=== PATIENT | male | born 1950 | race Caucasian/White ===

== ENCOUNTER → 2017-05-28 | Outpatient (CLI) | payer OTHER ==
[~2017-05-28] MED LIST: AMB10 PO; ATEN-173 PO; BUPR200T2 PO; CETI10TA84 PO; CLX20 PO; COQ10100 PO; HYDC25 PO; NMN10 PO; OMEG10007 PO; SYN75 PO; [UNRECOGNIZED DRUG - OTHER] PO
== END | disposition home or self-care (01) ==
LOC: C.CPL 10:10
PROVIDERS: ATTEND Psychiatry & Neurology Neurology
DX: G10 Huntington's disease (principal); R00.1 Bradycardia, unspecified; I44.0 Atrioventricular block, first degree; I25.2 Old myocardial infarction

== ENCOUNTER 2017-06-08 00:50 | Emergency (ER) | payer OTHER ==
[~2017-06-08] VITALS: Ht 172.7 cm; Wt 86.0 kg
[2017-06-08 00:56] VITALS: TEMP 36.7; Ht 172.7 cm; Wt 86.0 kg
[2017-06-08] MEDS ORDERED: PROPARACAINE HCL 0.5% OP SOLN 15 ML BTL ONE (01:04)
--- NOTE | 2017-06-08 01:25 | EMERGENCY ROOM VISIT NOTE ---
History Report prepared by Rafa: Mio Portillo Under the Supervision of: Dr. Sofia Bahena D.O. First contact with patient: 00:59 Chief Complaint: EYE ASSESSMENT Stated Complaint: VISION BLURRED,EYES WATER History of Present Illness The patient is a 66 year old male who presents to the Emergency Room with complaints of constant bilateral eye pain since two hours ago. 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 The patient states that he was wearing eye protection and a mask. He notes that his eyes became watery and he cannot open his eyes due to pain. He denies any history of lap welder's flash. The patient has a history of bilateral cataract surgery about 10 years ago. 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 Source of History: patient, nursing staff Onset: two hours ago Position: eye (bilateral) Quality: other (watery and unable to open eyes) Timing: constant Note: He notes bilateral eye pain. Review of Systems See HPI for pertinent positives & negatives. A total of 10 systems reviewed and were otherwise negative. Past Medical & Surgical Medical Problems: (1) bilateral cataract lens (2) HTN (hypertension) (3) Quan disease Family History FH: Riverhead's disease Hypertension Social History Smoking Status: Never Smoker Smokeless Tobacco Use: No Alcohol Use: none Drug Use: none Marital Status: Housing Status: lives with significant other Occupation Status: unemployed Current/Historical Medications Scheduled Atenolol (Tenormin), 25 MG PO DAILY Bupropion (Wellbutrin Sr), 200 MG PO BID Cetirizine (Zyrtec), 10 MG PO DAILY Citalopram (Celexa *), 20 MG PO DAILY Coenzyme Q10 (Ubidecarenone) (Co Q10 *), 4 CAPSULES PO QAM Coenzyme Q10 (Ubidecarenone) (Co Q10 *), 8 CAPSULES PO QPM Fish Oil ([place]wan-3), 1 CAP PO BID Haloperidol (Haldol Unknown Dose), 1 MG PO BID Hydrochlorothiazide (Hctz *), 25 MG PO DAILY Levothyroxine (Synthroid *), 0.075 MG PO DAILY Memantine (Namenda), 10 MG PO BID Zolpidem Tartrate (Ambien *), 10 MG PO HS Allergies Uncoded Allergies: NEOPRENE (Allergy, Unknown, ., 07/10/15) Physical Exam Vital Signs Date Time Temp Pulse Resp B/P (MAP) Pulse Ox O2 Delivery O2 Flow Rate FiO2 06/08/17 01:40 70 20 130/76 98 Room Air 06/08/17 00:56 36.7 73 20 136/84 98 Room Air Physical Exam Slit Lamp Examination Indication:Pain in both eyes Both eyes prepped with topical proparacaine. Slit lamp examination was performed in the standard fashion. Cornea appeared to have punctate lesions. Anterior chamber was quiet. Scleral injection was present. No discharge present. Fluorescein examination performed and revealed diffuse punctate lesions across both cornea consistent with lap welder's flash. The right appeared to be worse than the left. No foreign bodies noted. Negative Kyle sign. The patient tolerated the procedure well without complication. Medical Decision & Procedures Medications Administered Medications (Trade) Dose Ordered Sig/Georgina Route Start Time Stop Time Status Last Admin Dose Admin Proparacaine HCl (Alcaine 0.5% Oph Soln) 225 drops STK-MED ONCE .ROUTE 06/08/17 01:04 06/08/17 01:05 DC 06/08/17 01:13 225 DROPS Erythromycin (Erythromycin Oph Oint) 1 appln NOW ONCE OPB 06/08/17 01:30 06/08/17 01:31 DC 06/08/17 01:40 1 APPLN Procedure 0104: Ordered Proparacaine HCl 4 drops OPB 0130: Ordered Erythromycin 1 appln OPB ED Course 0102: Past medical records reviewed. The patient was evaluated in room B11B. A complete history and physical exam was performed. I administered 2 drops of Proparacaine HCl in each eye. The patient was able to open his eyes and states his vision is blurry. I performed a slit lamp exam. Please see exam note. I discussed the results and treatment plan with the patient and his . I answered all pertaining questions that they had. They expressed understanding and verbalized agreement. The patient will be discharged home. 0104: Ordered Proparacaine HCl 4 drops OPB 0130: Ordered Erythromycin 1 appln OPB Medical Decision The patient is a 66 year old male who presents to the ED with bilateral eye pain. Differential diagnosis includes corneal foreign body, conjunctivitis, and keratitis. This is a 66-year-old male patient who was welding earlier today as well as using a wire brush to clean judy nails. The patient had a sudden onset of discomfort in both of his eyes at bedtime. On physical exam, no foreign bodies were identified. There is no rust noted in the cornea. However, the patient had evidence of welders keratitis. The patient had complete relief of his eye pain with the Alcaine drops used to perform slit lamp examination. Patient was given an initial dose of erythromycin ophthalmic ointment. He should continue to use this over the next couple of days in both eyes every 6 hours. I have asked the patient to follow-up with his dental resident. 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 We will stick with Tylenol or Motrin for the pain in his eyes. Medication Reconcilliation Current Medication List: was personally reviewed by me Blood Pressure Screening Patient's blood pressure: Elevated blood pressure Blood pressure disposition: Elevated BP felt to be situational Impression Primary Impression: Welders' keratitis of both eyes Scribe Attestation The scribe's documentation has been prepared under my direction and personally reviewed by me in its entirety. I confirm that the note above accurately reflects all work, treatment, procedures, and medical decision making performed by me. Departure Information Dispostion Home / Self-Care Referrals Kin John M.D. (PCP) Forms HOME CARE DOCUMENTATION FORM, IMPORTANT VISIT INFORMATION, WORK / SCHOOL INSTRUCTIONS Patient Instructions My [facility] Additional Instructions Apply ointment to both eyes every 6 hours. Use tylenol or motrin for pain Follow up with eye doctor in 48 hours
[2017-06-08] MEDS ORDERED: ERYTHROMYCIN OP OINT 5 MG/GM 3.5 GM TUBE OPB ONE (01:30)
[2017-06-08 01:40] VITALS: BP 130/76; PULSE 70; O2SAT 98
== END 2017-06-08 01:41 | disposition home or self-care (01) ==
LOC: C.EDB 00:51
DX: H16.133 Photokeratitis, bilateral (principal); W89.0XXA Exposure to welding light (arc), initial encounter; Y93.89 Activity, other specified; Z98.41 Cataract extraction status, right eye; Z98.42 Cataract extraction status, left eye; Z96.1 Presence of intraocular lens; I10 Essential (primary) hypertension; G10 Huntington's disease; Z82.49 Family history of ischemic heart disease and other diseases of the circulatory system; Z79.899 Other long term (current) drug therapy; Z88.8 Allergy status to other drugs, medicaments and biological substances

== ENCOUNTER 2018-05-17 11:23 | Inpatient (IN) ==
[2018-05-17 12:09] LABS: Basophils # (auto) 0.01 K/uL (0-0.2); Basophils % (auto) 0.1 %; Eosinophils # (auto) 0.05 K/uL (0-0.5); Eosinophils % (auto) 0.4 %; Hematocrit (blood only) 44.4 % (42-52); Hemoglobin 15.4 g/dL (14.0-18.0); Immature Granulocytes # (auto) 0.03 K/uL (0.00-0.02); Immature Granulocytes % (auto) 0.2 %; Lymphocytes # (auto) 1.21 K/uL (1.2-3.4); Mean Corpuscular Hgb Conc 34.7 g/dL (32-36); Mean Corpuscular Volume 96.9 fL (80-100); Mean Platelet Volume 10.8 fL (7.4-10.4); Monocytes # (auto) 1.13 K/uL (0.11-0.59); Monocytes % (auto) 9.3 %; Neutrophils # (auto) 9.68 K/uL (1.4-6.5); Platelet Count 166 K/uL (130-400); RDW Coefficient of Variation 13.9 % (11.5-14.5); RDW Standard Deviation 49.7 fL (36.4-46.3); Red Blood Count 4.58 M/uL (4.7-6.1); White Blood Count 12.11 K/uL (4.8-10.8)
[2018-05-17 12:17] LABS: Alanine Aminotransferase 22 U/L (12-78); Albumin Level 3.7 gm/dl (3.4-5.0); Aspartate Aminotransferase 22 U/L (15-37); BUN Creatinine Ratio 14.7 (10-20); Blood Urea Nitrogen 19 mg/dl (7-18); Calcium 8.3 mg/dl (8.5-10.1); Carbon Dioxide 35 mmol/L (21-32); Chloride 101 mmol/L (98-107); Creatinine Clr Calc Pharmacy 53.5 ml/min; Est GFR (Non-African American) 57.8; Glucose 101 mg/dl (70-99); Sodium 140 mmol/L (136-145)
[2018-05-17 12:21] LABS: Albumin Globulin Ratio 0.9 (0.9-2); Alkaline Phosphatase 81 U/L (45-117); Bilirubin,Total 0.5 mg/dl (0.2-1); Globulin 3.9 gm/dl (2.5-4.0); Total Protein 7.6 gm/dl (6.4-8.2); Troponin I < 0.015 ng/ml (0-0.045)
[2018-05-17 12:26] LABS: Partial Thromboplastin Ratio 1.1; Partial Thromboplastin Time 30.7 Seconds (21.0-31.0); Prothrombin Time 10.6 Seconds (9.0-12.0)
--- NOTE | 2018-05-17 12:51 | XRay Report ---
XR chest 2V routine CLINICAL HISTORY: Dyspnea COMPARISON STUDY: No previous studies for comparison. FINDINGS: Minimal atelectasis right base. Slight interstitial prominence left base. Mid and upper coral gs are clear. IMPRESSION: Minimal/mild bibasilar atelectasis/interstitial change. Study is otherwise negative. The above report was generated using voice recognition software. It may contain grammatical, syntax or spelling errors. Electronically signed by: Rex Grullon M.D. 05/17/2018 12:50 PM
[2018-05-17 12:58] LABS: Influenza A virus by PCR Neg for Influ A (Neg); Influenza B virus by PCR Neg for Influ B (Neg)
[2018-05-17] MEDS ORDERED: OPTIRAY 320 125ml IV PRN (13:04)
--- NOTE | 2018-05-17 13:16 | CT Scan Report ---
CT angio chest PE protocol CT DOSE: 335.56 mGy.cm HISTORY: Dyspnea PE, hypoxia, sob TECHNIQUE: Multiaxial CT images of the chest were performed following the intravenous administration of contrast to evaluate the pulmonary arteries. Maximal intensity projection images were also obtaine d. A dose lowering technique was utilized adhering to the principles of ALARA. COMPARISON STUDY: None. FINDINGS: Thoracic aorta shows mild left ischemic change. Pulmonary vasculature enhances appropriately. There are no significant filling defects. There is a small patchy parenchymal infiltrate posterior aspect left lower lobe best seen transaxial image 51 and 50. There is minimal atelectasis right lung base. Pulmonary apices are considered clear. No significant mediastinal or hilar adenopathy. IMPRESSION: 1. Study is negative for pulmonary embolus.. 2. Small parenchymal infiltrate posterior aspect left lower lobe. 3. Degenerative changes thoracic spine. The above report was generated using voice recognition software. It may contain grammatical, syntax or spelling errors. Electronically signed by: Rex Grullon M.D. 05/17/2018 1:14 PM
[2018-05-17] MEDS ORDERED: AZITHROMYCIN 250 MG TAB PO ONE (13:58)
[2018-05-17] MEDS ORDERED: cefTRIAXone SODIUM 1,000 MG/50 ML BAG IV STA (13:58)
--- NOTE | 2018-05-17 14:15 | Emergency Department Note ---
Entered by Rufina Jose acting as a scribe for Magdiel Casas M.D. History of Present Illness General Chief complaint: Referred by Doctor Stated complaint: OXYGEN LEVEL LOW,POSSIBLE PNEUMONIA Source: patient Mode of arrival: ambulatory Limitations: no limitations History of Present Illness Onset (ago): day(s) 2 Location: chest Pain Consistency: + constant Quality: + other ("Low oxygen levels") Associated symptoms: + cough (without production), + fever/chills (The patient complains of fever. ), + shortness of breath and + other (. The patient complains of congestion. The patient denies difficulty swallowing. ); no nausea/vomiting The patient is a 67 year old male with a history of pneumonia who presents to the ED with complaints of a constant cough that onset 2 days ago. The patient states that he was referred to the ED for possible pneumonia and low oxygen level in the office. The patient complains of cough without production, shortness of breath, congestion, and fever. The patient denies nausea, vomiting, and difficulty swallowing. The patient wears hearing aids. He denies recent travel. Home Medications Home Medications Medication Instructions Recorded Confirmed Type Medical Marijuana 1 cap PO HS 11/26/17 05/17/18 History atenolol 25 mg PO QAM 11/26/17 05/17/18 History coenzyme Q10 [CoQ-10] 4 cap PO QAM 11/26/17 05/17/18 History coenzyme Q10 [CoQ-10] 8 cap PO HS 11/26/17 05/17/18 History hydrochlorothiazide 12.5 mg PO QAM 11/26/17 05/17/18 History memantine [Namenda] 10 mg PO BID 11/26/17 05/17/18 History omega 1-cld-wyl-fish oil [Fish Oil] 1 cap PO BID 11/26/17 05/17/18 History sertraline [Zoloft] 50 mg PO QAM 11/26/17 05/17/18 History sertraline [Zoloft] 100 mg PO HS 11/26/17 05/17/18 History zolpidem 10 mg PO HS 11/26/17 05/17/18 History bodbajfwfdg-nrkfjuhqpne-ownpsl 1 ea PO Q4H 03/05/19 03/05/19 History [Elvira-Milton Plus Cold (PE)] lamotrigine 75 mg PO HS 05/17/18 05/17/18 History levothyroxine 100 mcg PO QAM 05/17/18 05/17/18 History mirtazapine 45 mg PO HS 05/17/18 05/17/18 History sildenafil [Viagra] 25 mg PO DAILY PRN 05/17/18 05/17/18 History Allergies Allergy/AdvReac Type Severity Reaction Status Date / Time NEOPRENE Allergy Unknown . Uncoded 05/17/18 12:31 Past Med/Surg History Medical History PNA (pneumonia) (Acute) Simpson disease (Chronic) HTN (hypertension) (Chronic) Social History Preferred Language: Japanese Communication Ability: Effective First Aid Teacher Required: No Beliefs That Will Affect Care: None Current Living Situation: Spouse Other Information That Helps Us Care for You: No Feels Safe at Home: Yes Safety Concerns: Feels Safe At This Time Smoking Status: Former smoker Hx Alcohol Use: No Review of Systems See HPI for pertinent positives & negatives. and A total of 10 systems reviewed and were otherwise negative Physical Exam Vital Signs Vital Signs - 24 hr 05/17/18 11:29 05/17/18 11:45 05/17/18 12:18 Temperature 36.8 C Temperature Source Oral Sepsis Recent Fever Within 48 Hours No Sepsis New/Unexplained Change in Mental Status No Sepsis Action Taken by Nursing No Action Required Pulse Rate 62 Pulse Rate [Apical] Respiratory Rate 22 Respiratory Effort / Characteristics Respiratory Depth Respiratory Pattern Blood Pressure 104/69 Blood Pressure [Right Arm] Blood Pressure Mean 80 Blood Pressure Mean [Right Arm] Blood Pressure Position Sitting Blood Pressure Position [Right Arm] Pulse Oximetry 88 L 95 95 Oxygen Delivery Method Room Air Nasal Cannula Nasal Cannula Oxygen Flow Rate 2 2 05/17/18 13:13 05/17/18 14:27 05/17/18 15:33 Temperature Temperature Source Sepsis Recent Fever Within 48 Hours Sepsis New/Unexplained Change in Mental Status Sepsis Action Taken by Nursing Pulse Rate Pulse Rate [Apical] 61 55 L 55 L Respiratory Rate 18 18 Respiratory Effort / Characteristics Non-Labored Spontaneous Non-Labored Spontaneous Respiratory Depth Normal Normal Respiratory Pattern Regular Regular Blood Pressure Blood Pressure [Right Arm] 145/73 H 140/80 Blood Pressure Mean Blood Pressure Mean [Right Arm] 97 100 Blood Pressure Position Blood Pressure Position [Right Arm] Sitting Sitting Pulse Oximetry 92 93 95 Oxygen Delivery Method Nasal Cannula Nasal Cannula Nasal Cannula Oxygen Flow Rate 2 2 2 05/17/18 15:43 05/17/18 16:40 Temperature Temperature Source Sepsis Recent Fever Within 48 Hours Sepsis New/Unexplained Change in Mental Status Sepsis Action Taken by Nursing Pulse Rate Pulse Rate [Apical] 57 L Respiratory Rate 20 Respiratory Effort / Characteristics Non-Labored Spontaneous Respiratory Depth Normal Respiratory Pattern Regular Blood Pressure Blood Pressure [Right Arm] 135/90 Blood Pressure Mean Blood Pressure Mean [Right Arm] 105 Blood Pressure Position Blood Pressure Position [Right Arm] Pulse Oximetry 94 Oxygen Delivery Method Nasal Cannula Nasal Cannula Oxygen Flow Rate 2 2 GENERAL: Awake, alert, well-appearing, in no distress, on oxygen. HENT: Normocephalic, atraumatic. EYES: Normal conjunctiva. Sclera non-icteric. NECK: Supple. No nuchal rigidity. RESPIRATORY: Clear to auscultation. No wheezes. Normal respiratory effort. CARDIAC: Normal rate. Normal rhythm. Extremities warm and well perfused. GI: Soft, non-distended. No tenderness to palpation. No rebound or guarding. No masses. RECTAL: Deferred. MUSCULOSKELETAL: Atraumatic. Chest examination reveals no tenderness. LOWER EXTREMITIES: Calves are equal size bilaterally and non-tender. No edema NEURO: No sensory or motor deficits noted. No facial droop. Some slight tremor. SKIN: Warm and dry. No rash or jaundice noted. Course 1201: Past medical records reviewed. The patient was evaluated in room A02, and a complete history and physical examination were performed. 1415: I reviewed the patient's case with Dr. Stephon Sigala - [facility]. He will evaluate the patient for further management. Consultations Consultation #1: 1415: I reviewed the patient's case with Dr. Stephon Sigala - [facility]. He will evaluate the patient for further management. Time: 14:15 Administered Medications Ioversol (Optiray 320 125ml) 120 ml IV ONCE PRN PRN Reason: Interaction Checking Stop: 05/21/18 13:03 Last Admin: 05/17/18 13:05 Dose: 120 ml Documented by: [id number] Discontinued Medications Azithromycin (Zithromax) 500 mg PO NOW ONE Stop: 05/17/18 13:59 Last Admin: 05/17/18 14:16 Dose: 500 mg Documented by: [id number] Ceftriaxone Sodium (Rocephin) 1,000 mg in 50 mls @ 100 mls/hr IV NOW STA Stop: 05/17/18 14:27 Last Infusion: 05/17/18 14:47 Dose: 0 mls/hr Documented by: [id number] Admin: 05/17/18 14:17 Dose: 100 mls/hr Documented by: [id number] Medical Decision Making Differential Diagnosis Differential diagnosis: Etiologies such as infections, reactive airway disease, COPD, pneumonia, pleural effusion, pulmonary edema, ARDS, pneumothorax, CHF, cardiac ischemia, cardiac tamponade, dysrhythmia, anemia, pulmonary embolism, musculoskeletal, gastrointestinal process, as well as others were entertained. Medical Records Attestation: I reviewed the patient's medical records. Home Medications Current Medication List: was personally reviewed by me Laboratory Data Attestation: I reviewed the patient's lab results. Result diagrams: 05/17/18 11:44 05/17/18 11:44 Lab Results 05/17/18 05/17/18 05/17/18 Range/Units 11:44 11:44 11:44 WBC 12.11 H (4.8-10.8) K/uL RBC 4.58 L (4.7-6.1) M/uL Hgb 15.4 (14.0-18.0) g/dL Hct 44.4 (42-52) % MCV 96.9 (80-100) fL MCH 33.6 (25-34) pg MCHC 34.7 (32-36) g/dL RDW Std Deviation 49.7 H (36.4-46.3) fL RDW Coeff of Adriana 13.9 (11.5-14.5) % Plt Count 166 (130-400) K/uL MPV 10.8 H (7.4-10.4) fL Immature Gran % (Auto) 0.2 % Neut % (Auto) 80.0 % Lymph % (Auto) 10.0 % [place] % (Auto) 9.3 % Eos % (Auto) 0.4 % Baso % (Auto) 0.1 % Immature Gran # (Auto) 0.03 H (0.00-0.02) K/uL Neut # (Auto) 9.68 H (1.4-6.5) K/uL Lymph # (Auto) 1.21 (1.2-3.4) K/uL [place] # (Auto) 1.13 H (0.11-0.59) K/uL Eos # (Auto) 0.05 (0-0.5) K/uL Baso # (Auto) 0.01 (0-0.2) K/uL PT 10.6 (9.0-12.0) Seconds INR 1.0 (0.9-1.1) APTT 30.7 (21.0-31.0) Seconds PTT Ratio 1.1 Sodium 140 (136-145) mmol/L Potassium 3.0 L (3.5-5.1) mmol/L Chloride 101 (98-107) mmol/L Carbon Dioxide 35 H (21-32) mmol/L Anion Gap 4.0 (3-11) BUN 19 H (7-18) mg/dl Creatinine 1.26 (0.6-1.4) mg/dl Est Cr Clr Drug Dosing 53.5 ml/min Est GFR ( Amer) 67.0 Est GFR (Non-Af Amer) 57.8 BUN/Creatinine Ratio 14.7 (10-20) Glucose 101 H (70-99) mg/dl Calcium 8.3 L (8.5-10.1) mg/dl Total Bilirubin 0.5 (0.2-1) mg/dl AST 22 (15-37) U/L ALT 22 (12-78) U/L Alkaline Phosphatase 81 (45-117) U/L Troponin I < 0.015 (0-0.045) ng/ml Total Protein 7.6 (6.4-8.2) gm/dl Albumin 3.7 (3.4-5.0) gm/dl Globulin 3.9 (2.5-4.0) gm/dl Albumin/Globulin Ratio 0.9 (0.9-2) Influenza Type A (PCR) (Neg) Influenza Type B (PCR) (Neg) 05/17/18 Range/Units 12:11 WBC (4.8-10.8) K/uL RBC (4.7-6.1) M/uL Hgb (14.0-18.0) g/dL Hct (42-52) % MCV (80-100) fL MCH (25-34) pg MCHC (32-36) g/dL RDW Std Deviation (36.4-46.3) fL RDW Coeff of Adriana (11.5-14.5) % Plt Count (130-400) K/uL MPV (7.4-10.4) fL Immature Gran % (Auto) % Neut % (Auto) % Lymph % (Auto) % [place] % (Auto) % Eos % (Auto) % Baso % (Auto) % Immature Gran # (Auto) (0.00-0.02) K/uL Neut # (Auto) (1.4-6.5) K/uL Lymph # (Auto) (1.2-3.4) K/uL [place]enden # (Auto) (0.11-0.59) K/uL Eos # (Auto) (0-0.5) K/uL Baso # (Auto) (0-0.2) K/uL PT (9.0-12.0) Seconds INR (0.9-1.1) APTT (21.0-31.0) Seconds PTT Ratio Sodium (136-145) mmol/L Potassium (3.5-5.1) mmol/L Chloride (98-107) mmol/L Carbon Dioxide (21-32) mmol/L Anion Gap (3-11) BUN (7-18) mg/dl Creatinine (0.6-1.4) mg/dl Est Cr Clr Drug Dosing ml/min Est GFR ( Amer) Est GFR (Non-Af Amer) BUN/Creatinine Ratio (10-20) Glucose (70-99) mg/dl Calcium (8.5-10.1) mg/dl Total Bilirubin (0.2-1) mg/dl AST (15-37) U/L ALT (12-78) U/L Alkaline Phosphatase (45-117) U/L Troponin I (0-0.045) ng/ml Total Protein (6.4-8.2) gm/dl Albumin (3.4-5.0) gm/dl Globulin (2.5-4.0) gm/dl Albumin/Globulin Ratio (0.9-2) Influenza Type A (PCR) Neg for Influ A (Neg) Influenza Type B (PCR) Neg for Influ B (Neg) Imaging Data Radiologist's Impression: Radiology results as stated below per my review and the radiologist's interpretation: CT angio chest PE protocol CT DOSE: 335.56 mGy.cm HISTORY: Dyspnea PE, hypoxia, sob TECHNIQUE: Multiaxial CT images of the chest were performed following the intravenous administration of contrast to evaluate the pulmonary arteries. Maximal intensity projection images were also obtained. A dose lowering technique was utilized adhering to the principles of ALARA. COMPARISON STUDY: None. FINDINGS: Thoracic aorta shows mild left ischemic change. Pulmonary vasculature enhances appropriately. There are no significant filling defects. There is a small patchy parenchymal infiltrate posterior aspect left lower lobe best seen transaxial image 51 and 50. There is minimal atelectasis right lung base. Pulmonary apices are considered clear. No significant mediastinal or hilar adenopathy. IMPRESSION: 1. Study is negative for pulmonary embolus.. 2. Small parenchymal infiltrate posterior aspect left lower lobe. 3. Degenerative changes thoracic spine. The above report was generated using voice recognition software. It may contain grammatical, syntax or spelling errors. Electronically signed by: Rex Grullon M.D. 05/17/2018 1:14 PM Dictated: 05/17/18 1311 Transcribed: 05/17/18 1311 XR chest 2V routine CLINICAL HISTORY: Dyspnea COMPARISON STUDY: No previous studies for comparison. FINDINGS: Minimal atelectasis right base. Slight interstitial prominence left base. Mid and upper lungs are clear. IMPRESSION: Minimal/mild bibasilar atelectasis/interstitial change. Study is otherwise negative. The above report was generated using voice recognition software. It may contain grammatical, syntax or spelling errors. Electronically signed by: Rex Grullon M.D. 05/17/2018 12:50 PM Dictated: 05/17/18 1249 Transcribed: 05/17/18 1249 ECG Data Attestation: I personally reviewed and interpreted this ECG as follows: Indication: weakness Rate (beats per minute): 57 Rhythm: sinus bradycardia Findings: + other (U waves present) and + 1st degree AV block; no PVC, no ST depression and no ST elevation Blood Pressure Blood Pressure Findings: Normal blood pressure MDM Narrative 67-year-old gentleman with a history of Quan disease presenting with several days of cough to his PCP and shortness of breath found to be hypoxic. Chest x-ray is unremarkable but the CT does show a left lower lobe pneumonia. No evidence of PE. No evidence of acute ACS or cardiac injury. Patient does not appear septic. Does have a new oxygen requirement. Given community acquired pneumonia antibiotic coverage with IV ceftriaxone and p.o. azithromycin. Discussed with hospitalist for admission. Do not believe this is related to his underlying Simpson's disease at this time. Impression & Plan PNA (pneumonia), Hypoxia Discharge Plan Visit Data Chief Complaint: Referred by Doctor Stated Complaint: OXYGEN LEVEL LOW,POSSIBLE PNEUMONIA ED Provider: Magdiel Casas Discharge Problem: PNA (pneumonia), Hypoxia Patient Disposition: Being Evaluated by Hospitalist Forms Stand Alone Forms: My [facility] Prescriptions Prescriptions: No Action sertraline [Zoloft] 100 mg Tablet 100 mg PO HS RF: 0 atenolol 25 mg tablet 25 mg PO QAM RF: 0 hydrochlorothiazide 25 mg Tablet 12.5 mg PO QAM RF: 0 zolpidem 10 mg Tablet 10 mg PO HS RF: 0 sertraline [Zoloft] 50 mg Tablet 50 mg PO QAM RF: 0 coenzyme Q10 [CoQ-10] 100 mg Capsule 4 cap PO QAM RF: 0 coenzyme Q10 [CoQ-10] 100 mg Capsule 8 cap PO HS RF: 0 memantine [Namenda] 10 mg Tablet 10 mg PO BID RF: 0 omega 9-jfd-dmv-fish oil [Fish Oil] 1,000 mg (120 mg-180 mg) Capsule 1 cap PO BID RF: 0 Medical Marijuana 1 cap PO HS RF: 0 sildenafil [Viagra] 25 mg Tablet 25 mg PO DAILY PRN (Reason: Erectile Dysfunction) RF: 0 lamotrigine 25 mg Tablet 75 mg PO HS RF: 0 levothyroxine 100 mcg Tablet 100 mcg PO QAM RF: 0 mirtazapine 45 mg Tablet 45 mg PO HS RF: 0 Elvira-Milton Plus Cold (PE) 2-7.8-325 mg Tablet, Effervescent 1 ea PO Q4H RF: 0 Referrals Referrals: Kin John [Primary Care Provider] - Discharge Problem: PNA (pneumonia) Qualifiers: Pneumonia type: due to unspecified organism Laterality: left Lung location: lower lobe of lung Qualified Code(s): J18.1 - Lobar pneumonia, unspecified organism The scribe's documentation has been prepared under my direction and personally reviewed by me in its entirety. I confirm that the note above accurately reflects all work, treatment, procedures, and medical decision making performed by me.
--- NOTE | 2018-05-17 15:37 | History & Physical Report ---
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 Presents with SOB and a productive cough over 2-3 days. He denies any CP and does not confirm a fever. The pt was hypoxic and tachycardic on arrival to the ER so that a CTA was obtained. No PE was present, however, a LLL infiltrate was confirmed. The size of the PNM is not impressive, however, he is requiring supplemental 02 so will remain hospitalized for the time being. Initial labs are notable for hypokalemia. 1) PNM - placed on Cefriaxone and Zithromax - 02 protocol - scheduled nebs. 2) Hypokalemia - K and Mg provided 3) HTN - HCTZ held - cont Atenolol 4) Hypothyroid - cont Synthroid 5) Quan's - follows with [facility] - continue prescribed neuroactive meds and Namenda for dementia Full code - SCDs Total time for this admit including review of labs, meds, imaging, records - discussion with pt and ER attending - 35 min History of Present Illness Chief Complaint: SOB, cough Primary Care Provider: Kin John 67 y/o m hx [place]'s chorea, HTN, hypothyroid. Presents with SOB and a prod uctive cough over 2-3 days. He denies any CP and does not confirm a fever. The pt was hypoxic and tachycardic on arrival to the ER so that a CTA was obtained. No PE was present, however, a LLL infiltrate was confirmed. The size of the PNM is not impressive, however, he is requiring supplemental 02 so will remain hospitalized for the time being. Initial labs are notable for hypokalemia. 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 Uncoded 05/17/18 12:31 Home Medications Home Medications Medication Instructions Recorded Confirmed Type Medical Marijuana 1 cap PO HS 11/26/17 05/17/18 History atenolol 25 mg PO QAM 11/26/17 05/17/18 History coenzyme Q10 [CoQ-10] 4 cap PO QAM 11/26/17 05/17/18 History coenzyme Q10 [CoQ-10] 8 cap PO HS 11/26/17 05/17/18 History hydrochlorothiazide 12.5 mg PO QAM 11/26/17 05/17/18 History memantine [Namenda] 10 mg PO BID 11/26/17 05/17/18 History omega 6-cmb-hql-fish oil [Fish Oil] 1 cap PO BID 11/26/17 05/17/18 History sertraline [Zoloft] 50 mg PO QAM 11/26/17 05/17/18 History sertraline [Zoloft] 100 mg PO HS 11/26/17 05/17/18 History zolpidem 10 mg PO HS 11/26/17 05/17/18 History msqethgpxcs-dwxihndvkpg-tkfoyo 1 ea PO Q4H 05/17/18 05/17/18 History [Elvira-[place] Plus Cold (PE)] lamotrigine 75 mg PO HS 05/17/18 05/17/18 History levothyroxine 100 mcg PO QAM 05/17/18 05/17/18 History mirtazapine 45 mg PO HS 05/17/18 05/17/18 History sildenafil [Viagra] 25 mg PO DAILY PRN 05/17/18 05/17/18 History Past Med/Surg History Medical History PNA (pneumonia) (Acute) [place] disease (Chronic) HTN (hypertension) (Chronic) Social History Preferred Language: Turkish Communication Ability: Effective Hearing Ability: Use of Hearing Aid Feels Safe at Home: Yes Smoking Status: Former smoker Review of Systems Gen: Denies fevers, night sweats, rigors, fatigue, malaise, weight loss/gain ENT: Denies congestion, throat pain, hearing loss Eyes: Denies acute visual changes CV: Denies CP, palpitations Pulmonary: SOB and productive cough GI: Denies N/V, diarrhea, constipation Neuro: Denies acute or unilateral weakness, acute gait impairment, headache or acute visual changes - chronic movement disorder as above. Musculoskeletal: Denies joint pain, inflammation Endocrine: Denies polydipsia, polyuria Skin: Denies acute rashes or ulcers Physical Exam Vital Signs (Past 24 Hours): Last Vital Signs Temp 36.8 C 05/17/18 11:29 Pulse 55 L 05/17/18 14:27 Resp 18 05/17/18 14:27 BP 140/80 05/17/18 14:27 Pulse Ox 93 05/17/18 14:27 Physical Exam: General: Pleasant midlle -aged male - exhibits chorea - AAO x 3, no distress ENT: No erythema or exudates, no thrush Eyes: GIANA, EOMI Head and neck: Normocephalic, atraumatic, No JVD, neck is supple. Chest/heart: Nontender, S1,2, RRR, no murmurs, no gallops Lungs: CTAB, no wheezing or crackles - cannot auscultate any abnormalities. Abdomen: Nontender, nondistended, BS+ Neuro: Cgoreaform movement is persistent Musculoskeletal: No joint inflammation, muscle tenderness, FROM Skin: No acute rashes or ulcers Extremities: No clubbing, cyanosis, edema Results & Data Diagnostic Findings CTA chest: 1. Study is negative for pulmonary embolus. 2. Small parenchymal infiltrate posterior aspect left lower lobe. 3. Degenerative changes thoracic spine. (1) PNA (pneumonia) Laterality: left Lung location: lower lobe of lung Pneumonia type: due to unspecified organism Qualified Code(s): J18.1 - Lobar pneumonia, unspecified organism
[2018-05-17] MEDS ORDERED: MAGNESIUM SULFATE / D5W 1 GM/100 ML BAG IV ONE (17:31)
[2018-05-17] MEDS ORDERED: ONDANSETRON INJ 2 MG/ML 2 ML VIAL IV PRN (17:31)
[2018-05-17] MEDS ORDERED: ACETAMINOPHEN 325 MG TAB PO PRN (17:31)
[2018-05-17] MEDS ORDERED: ALUMINUM/MAGNESIUM SUSP 30 ML UDC PO PRN (17:31)
[2018-05-17] MEDS ORDERED: POLYETHYLENE (MIRALAX) 17 GM PACK PO PRN (17:31)
[2018-05-17] MEDS ORDERED: MAGNESIUM HYDROXIDE SUSP 30 ML UDC PO PRN (17:31)
[2018-05-17] MEDS: POTASSIUM CHLORIDE / WTR 10 MEQ/100 ML PLCT IV SCH ×3 (17:58→21:13)
[2018-05-17] MEDS: ALBUT/IPRATROP 3MG/0.5MG NEB 3 ML VIAL NEB PRN ×2 (19:28→23:22)
[2018-05-17] MEDS: D5NSS + 20MEQ KCL 20 MEQ/1,000 ML BAG IV SCH (19:50)
[2018-05-17] MEDS: ZOLPIDEM TARTRATE 10 MG TAB PO SCH (21:25)
[2018-05-17] MEDS: lamoTRIgine 25 MG TAB PO SCH (21:25)
[2018-05-17] MEDS: OMEGA-3 (PURIFIED FISH OIL) 1 GM CAP PO SCH (21:26)
[2018-05-17] MEDS: MIRTAZAPINE SOLTAB 15 MG PO SCH (21:26)
[2018-05-17] MEDS: MEMANTINE HCL 10 MG TAB PO SCH (21:27)
[2018-05-17] MEDS: SERTRALINE HCL 100 MG TABLET PO SCH (21:27)
[2018-05-17] MEDS: MEDICAL MARIJUANA PO SCH (21:47)
[2018-05-17] MEDS: CO Q10 PO SCH (22:06)
[2018-05-18] MEDS ORDERED: [UNRECOGNIZED DRUG - REMARK] SCH ×2
[2018-05-18] MEDS: LEVOTHYROXINE SODIUM 100 MCG TABLET PO SCH (05:36)
[2018-05-18] MEDS: D5NSS + 20MEQ KCL 20 MEQ/1,000 ML BAG IV SCH (05:36)
[2018-05-18 07:09] LABS: Basophils # (auto) 0.02 K/uL (0-0.2); Basophils % (auto) 0.2 %; Eosinophils # (auto) 0.04 K/uL (0-0.5); Eosinophils % (auto) 0.4 %; Hematocrit (blood only) 38.3 % (42-52); Hemoglobin 12.8 g/dL (14.0-18.0); Immature Granulocytes # (auto) 0.01 K/uL (0.00-0.02); Immature Granulocytes % (auto) 0.1 %; Lymphocytes # (auto) 1.68 K/uL (1.2-3.4); Lymphocytes % (auto) 18.5 %; Mean Corpuscular Hgb Conc 33.4 g/dL (32-36); Mean Platelet Volume 10.4 fL (7.4-10.4); Monocytes # (auto) 1.02 K/uL (0.11-0.59); Monocytes % (auto) 11.2 %; Neutrophils # (auto) 6.31 K/uL (1.4-6.5); Neutrophils % (auto) 69.6 %; Platelet Count 135 K/uL (130-400); RDW Coefficient of Variation 14.1 % (11.5-14.5); RDW Standard Deviation 50.4 fL (36.4-46.3); Red Blood Count 3.95 M/uL (4.7-6.1); White Blood Count 9.08 K/uL (4.8-10.8)
[2018-05-18 07:58] LABS: BUN Creatinine Ratio 13.5 (10-20); Creatinine Clr Calc Pharmacy 61.3 ml/min; Est GFR (Non-African American) 68.1; Magnesium 2.6 mg/dl (1.8-2.4); Potassium 3.9 mmol/L (3.5-5.1)
[2018-05-18] MEDS: OMEGA-3 (PURIFIED FISH OIL) 1 GM CAP PO SCH ×2 (08:19→22:24)
[2018-05-18] MEDS: MEMANTINE HCL 10 MG TAB PO SCH ×2 (08:19→22:24)
[2018-05-18] MEDS: SERTRALINE HCL 50 MG TABLET PO SCH (08:19)
[2018-05-18] MEDS: CO Q10 PO SCH ×2 (08:20→22:23)
[2018-05-18] MEDS: ATENOLOL 25 MG TABLET PO SCH (08:21)
[2018-05-18] MEDS ORDERED: POLYETHYLENE (MIRALAX) 17 GM PACK PO PRN (10:30)
[2018-05-18] MEDS: DOCUSATE SODIUM 100 MG CAP PO SCH ×3 (11:22→22:28)
[2018-05-18] MEDS: guaiFENesin SUGAR FREE 200 MG/10 ML UDC PO PRN ×2 (12:54→22:23)
[2018-05-18] MEDS ORDERED: cefTRIAXone SODIUM 1,000 MG in DEXTROSE 5% 50 ML IV SCH (14:00)
[2018-05-18] MEDS ORDERED: AZITHROMYCIN 500 MG in DEXTROSE 5% 250 ML IV SCH (14:00)
[2018-05-18] MEDS: ALBUT/IPRATROP 3MG/0.5MG NEB 3 ML VIAL NEB PRN (16:04)
--- NOTE | 2018-05-18 19:01 | Hospitalist Progress Note ---
Date of Service May 18, 2018 Assessment & Plan (1) PNA (pneumonia): 67 y/o m past medical history of hx [place]'s chorea, HTN, hypothyroid mediated on May 17, 2018 because of left lower lobe pneumonia Per report, pt presents with SOB and a productive cough over 3 days, he was found hypoxic and tachycardic in ER CTA was done: No PE was present, however, a LLL infiltrate Left lower lobe pneumonia, continue Cefriaxone and Zithromax , continue 02 protocol nebulizer treatment Hypokalemia , resolved HTN : cont Atenolol Hypothyroid : cont Synthroid [place]'s - follows with Dr. Deutsch - continue current medication Full code - SCDs DVT prophylaxis covered Subjective Generally feeling okay, however has cough a little bit wheezing, no sputum, denies fever and chill, Report constipation, no bowel movement for 3-4 days Review of Systems Constitutional: Positive weakness, or fatigue Respiratory: See above , dyspnea on exertion Cardiac: No chest pain, No orthopnea, No PND, No claudication, No palpitations, Abdomen: No pain, No nausea, No vomiting, No diarrhea, Musculoskeletal: No joint pain, No muscle pain, No swelling, No calf pain, No problem reported : No dysuria, No urinary frequency, No incontinence, No hematuria Neurologic: No paralysis, No weakness, No numbness/tingling, No vertigo, No balance problems Psychiatric: No depression symptoms, No anhedonism, Heme: No abnormal bleeding/bruising, No clotting problems, Skin: No rash, No itch, No new/changing skin lesions, No color change, No bleeding Physical Exam Vital Signs (Past 24 Hours): Last Vital Signs Temp 37.1 C 05/18/18 15:00 Pulse 63 05/18/18 16:06 Resp 16 05/18/18 16:06 BP 103/67 05/18/18 15:00 Pulse Ox 95 05/18/18 16:06 Physical Exam: General Appearance: Looks mild tired WD/WN, no apparent distress, Eyes: normal inspection, PERRL, EOMI, sclerae normal ENT: normal ENT inspection, hearing grossly normal, pharynx normal Neck: supple, no adenopathy, thyroid normal, no JVD, no carotid bruits, trachea midline Respiratory/Chest: chest non-tender, decreased breath sounds, no respiratory distress, no accessory muscle use, Occasional wheezing, left middle lung has crackles, Cardiovascular: regular rate, rhythm, no JVD, no murmur Abdomen: normal bowel sounds, non tender, soft, no organomegaly, Extremities: normal range of motion, non-tender, normal inspection, no pedal edema, no calf tenderness, normal capillary refill, pelvis stable, joint has no limited range of motion, capillary refill is normal, no cyanosis clubbing Neurologic/Psychiatric: dining room host II-XII nml as tested, no motor/sensory deficits, alert, normal mood/affect, oriented x 3 Skin: normal color, warm/dry, no rash Lymphatic: no adenopathy Results & Data Laboratory Results Laboratory Results - last 24 hr 05/18/18 05/18/18 06:55 06:55 WBC 9.08 RBC 3.95 L Hgb 12.8 L Hct 38.3 L MCV 97.0 MCH 32.4 MCHC 33.4 RDW Std Deviation 50.4 H RDW Coeff of Adriana 14.1 Plt Count 135 MPV 10.4 Immature Gran % (Auto) 0.1 Neut % (Auto) 69.6 Lymph % (Auto) 18.5 [place] % (Auto) 11.2 Eos % (Auto) 0.4 Baso % (Auto) 0.2 Immature Gran # (Auto) 0.01 Neut # (Auto) 6.31 Lymph # (Auto) 1.68 [place] # (Auto) 1.02 H Eos # (Auto) 0.04 Baso # (Auto) 0.02 Sodium 140 Potassium 3.9 D Chloride 104 Carbon Dioxide 30 Anion Gap 6.0 BUN 15 Creatinine 1.10 Est Cr Clr Drug Dosing 61.3 Est GFR ( Amer) 79.0 Est GFR (Non-Af Amer) 68.1 BUN/Creatinine Ratio 13.5 Glucose 116 H Calcium 8.0 L Magnesium 2.6 H Microbiology 05/17/18 Unknown Sputum, Expectorated Gram Stain - Final 05/17/18 Unknown Sputum, Expectorated Sputum Culture - Preliminary Moderate normal lisa present, final report to follow. (1) PNA (pneumonia) Laterality: left Lung location: lower lobe of lung Pneumonia type: due to unspecified organism Qualified Code(s): J18.1 - Lobar pneumonia, unspecified organism
[2018-05-18] MEDS: ZOLPIDEM TARTRATE 10 MG TAB PO SCH (22:22)
[2018-05-18] MEDS: MEDICAL MARIJUANA PO SCH (22:22)
[2018-05-18] MEDS: SERTRALINE HCL 100 MG TABLET PO SCH (22:23)
[2018-05-18] MEDS: lamoTRIgine 25 MG TAB PO SCH (22:24)
[2018-05-18] MEDS: MIRTAZAPINE SOLTAB 15 MG PO SCH (22:25)
[2018-05-19] MEDS: LEVOTHYROXINE SODIUM 100 MCG TABLET PO SCH (05:46)
[2018-05-19 06:18] LABS: Basophils # (auto) 0.02 K/uL (0-0.2); Basophils % (auto) 0.3 %; Eosinophils # (auto) 0.19 K/uL (0-0.5); Eosinophils % (auto) 2.5 %; Hematocrit (blood only) 38.9 % (42-52); Hemoglobin 13.1 g/dL (14.0-18.0); Immature Granulocytes # (auto) 0.01 K/uL (0.00-0.02); Immature Granulocytes % (auto) 0.1 %; Lymphocytes # (auto) 2.31 K/uL (1.2-3.4); Lymphocytes % (auto) 30.8 %; Mean Corpuscular Hgb Conc 33.7 g/dL (32-36); Mean Corpuscular Volume 97.5 fL (80-100); Mean Platelet Volume 10.1 fL (7.4-10.4); Monocytes # (auto) 0.77 K/uL (0.11-0.59); Monocytes % (auto) 10.3 %; Platelet Count 136 K/uL (130-400); RDW Coefficient of Variation 13.9 % (11.5-14.5); RDW Standard Deviation 49.6 fL (36.4-46.3); Red Blood Count 3.99 M/uL (4.7-6.1)
[2018-05-19 06:52] LABS: BUN Creatinine Ratio 14.8 (10-20); Calcium 7.5 mg/dl (8.5-10.1); Creatinine Clr Calc Pharmacy 69.5 ml/min; Est GFR (African American) 91.9; Est GFR (Non-African American) 79.3; Magnesium 2.8 mg/dl (1.8-2.4); Potassium 3.8 mmol/L (3.5-5.1)
[2018-05-19] MEDS: DOCUSATE SODIUM 100 MG CAP PO SCH (09:54)
[2018-05-19] MEDS: MEMANTINE HCL 10 MG TAB PO SCH (09:55)
[2018-05-19] MEDS: OMEGA-3 (PURIFIED FISH OIL) 1 GM CAP PO SCH (09:55)
[2018-05-19] MEDS: ATENOLOL 25 MG TABLET PO SCH (09:55)
[2018-05-19] MEDS: SERTRALINE HCL 50 MG TABLET PO SCH (09:55)
[2018-05-19] MEDS: CO Q10 PO SCH (09:55)
[2018-05-19] MEDS ORDERED: AZITHROMYCIN 250 MG TAB PO ONE (13:16)
[2018-05-19] MEDS ORDERED: CEFDINIR 300 MG CAP PO STA (13:22)
--- NOTE | 2018-05-19 19:37 | Discharge Summary ---
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 Presents with SOB and a productive cough over 2-3 days. He denies any CP and does not confirm a fever. The pt was hypoxic and tachycardic on arrival to the ER so that a CTA was obtained. No PE was present, however, a LLL infiltrate was confirmed. The size of the PNM is not impressive, however, he is requiring supplemental 02 so will remain hospitalized for the time being. Initial labs are notable for hypokalemia. 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 HEENT normocephali c atraumatic mucous members are moist. Breathing is unlabored no accessory muscle use, lungs are actually surprisingly clear without any rales rhonchi or wheezes. Skin shows no rashes no pallor or icterus Discharge Data Allergies Allergy/AdvReac Type Severity Reaction Status Date / Time NEOPRENE Allergy Unknown . Uncoded 05/17/18 12:31 Consultations 05/17/18 13:58 ED Decision to Admit Stat 05/19/18 11:54 Consult Case Management - Discharge Planning Routine Ordered Studies 05/17/18 12:52 CT angio chest PE protocol Stat Hospital Course (1) PNA (pneumonia): 67 y/o m past medical history of hx [place]'s chorea, HTN, hypothyroid mediated on May 17, 2018 because of left lower lobe pneumonia Per report, pt presents with SOB and a productive cough over 3 days, he was found hypoxic and tachycardic in ER CTA was done: No PE was present, however, a LLL infiltrate Left lower lobe pneumoniastable for home on Ceftin ear and Zithromax Hypokalemia , resolved HTN : Home meds and outpatient follow-up Hypothyroid : cont Synthroid [place]'s - follows with Dr. Deutsch - continue current medication, he notes significant improvement with medical marijuana Stable for home, two step done. Full code - SCDs DVT prophylaxis covered Total Time Total Time Spent Total Time Spent (In Minutes): Greater than 30 Discharge Plan Discharge Items Patient Disposition: Home - Self-Care Reason For Visit: PNM Discharge Diagnosis: pneumonia Discharge Goals: Diagnostic testing and Therapeutic intervention Activity: Resume your previous activity Non-emergency contact: Primary Care Provider Call non-emergency contact if: you have any medication questions and your symptoms worsen Follow-up/Referrals: Kin John [Primary Care Provider] - Diet: Regular Addtl Provider Instructions: pneumonia -the pneumonia appears to be getting better - realize that it will probably take the better part of a month to totally feel "good as new" -- the cough/shortness of breath/etc will go away over the next week or two, but a general feeling of fatigue is likely to last until around Easter. figure that you'll be feeling better each day, but so slowly that you'll only notice if you measure your progress in 3-4 days at a time -follow up with Dr John as scheduled, and as we discussed, since he can be hard to get in with, having a "designated hitter" as one of the residents to see you when Dr John can't is typically a pretty good strategy (remember that since continuity is quite important stick with the same resident each time that Dr John isn't able to get you in) Prescriptions: New azithromycin [Zithromax] 250 mg tablet 250 mg PO DAILY 3 Days Qty: 3 RF: 0 cefdinir 300 mg capsule 300 mg PO BID 5 Days Qty: 10 RF: 0 Continued sertraline [Zoloft] 100 mg Tablet 100 mg PO HS RF: 0 atenolol 25 mg tablet 25 mg PO QAM RF: 0 hydrochlorothiazide 25 mg Tablet 12.5 mg PO QAM RF: 0 zolpidem 10 mg Tablet 10 mg PO HS RF: 0 sertraline [Zoloft] 50 mg Tablet 50 mg PO QAM RF: 0 coenzyme Q10 [CoQ-10] 100 mg Capsule 4 cap PO QAM RF: 0 coenzyme Q10 [CoQ-10] 100 mg Capsule 8 cap PO HS RF: 0 memantine [Namenda] 10 mg Tablet 10 mg PO BID RF: 0 omega 8-lcz-ywu-fish oil [Fish Oil] 1,000 mg (120 mg-180 mg) Capsule 1 cap PO BID RF: 0 Medical Marijuana 1 cap PO HS RF: 0 sildenafil [Viagra] 25 mg Tablet 25 mg PO DAILY PRN (Reason: Erectile Dysfunction) RF: 0 lamotrigine 25 mg Tablet 75 mg PO HS RF: 0 levothyroxine 100 mcg Tablet 100 mcg PO QAM RF: 0 mirtazapine 45 mg Tablet 45 mg PO HS RF: 0 Elvira-[place] Plus Cold (PE) 2-7.8-325 mg Tablet, Effervescent 1 ea PO Q4H RF: 0 Stand-Alone Forms: [facility] Discharge Orders: Discharge Order (Routine); Ordered 05/19/18 Ordered By: Ignacio Melchor Admission Data Admit Date/Time: 05/17/18 16:05 Attending Provider: gInacio Melchor Admit Provider: Jewel Szymanski Primary Care Provider: Kin John Other Providers: Jewel Szymanski ; Lamine Figueroa Service: Medical Other Interventions: Discharge Summary Assessment (RN) Last Done: 05/19/18 13:51 DC Date/Time DO NOT enter until pt leaves facility: 05/19/18 14:15
== END 2018-05-19 14:15 | disposition home or self-care (01) | DRG 194 ==
LOC: ED 11:23 → 4W 16:05 → SUATTDRO 16:05 → 4W 16:40